=== PATIENT | female | born 1975 | race Caucasian/White ===

== ENCOUNTER 2019-12-16 18:20 | Emergency (ER) | payer OTHER ==
[2019-12-16 18:28] VITALS: RESP 18
[2019-12-16] MEDS ORDERED: KETOROLAC 30 MG/ML 1 ML VIAL IVP STA (18:56)
[2019-12-16] MEDS ORDERED: ONDANSETRON 4 MG/2 ML VIAL IVP STA (18:56)
[2019-12-16] MEDS ORDERED: SODIUM CHLORIDE 0.9% 1,000 ML IV STA (18:56)
[2019-12-16] MEDS ORDERED: PANTOPRAZOLE 40 MG/10 ML VIAL IVP STA (18:56)
[2019-12-16 19:35] LABS: Basophils # (A) 0.1 k/uL (0-0.2); Basophils % (A) 1 %; Eosinophils # (A) 0.4 k/uL (0-0.7); Eosinophils % (A) 4 %; HCT 34.9 % (34.0-46.0); HGB 11.4 gm/dL (11.4-16.0); Lymphocytes # (A) 2.7 k/uL (1.0-4.8); Lymphocytes % (A) 31 %; MCH 29.1 pg (25.0-35.0); MCHC 32.6 g/dL (31.0-37.0); MCV 89.3 fL (80.0-100.0); Mean Platelet Volume 7.5; Monocytes # (A) 0.4 k/uL (0-1.0); Monocytes % (A) 4 %; Neutrophils # (A) 4.9 k/uL (1.3-7.7); Neutrophils % (A) 58 %; Platelet Count 239 k/uL (150-450); RBC 3.91 m/uL (3.80-5.40); RDW 14.6 % (11.5-15.5); WBC 8.5 k/uL (3.8-10.6)
--- NOTE | 2019-12-16 19:46 | ED ---
Extremity Problem HPI - General Chief complaint: Extremity Problem,Nontraumatic Stated complaint: Arm/hand numbness Time Seen by Provider: 12/16/19 18:31 Source: patient, RN notes reviewed, old records reviewed Mode of arrival: ambulatory Limitations: no limitations - History of Present Illness Initial comments: Patient is a 44-year-old female who presents emergency Department today for concern for upper abdominal pain. She reports she has history of chronic pancreatitis. Patient reports that she is also here for upper extremity pain bilaterally. Patient reports that she gets numbness and tingling that will wake up and only of both hands and wrists. - Related Data Previous Rx's Medication Instructions Recorded Famotidine [Pepcid] 20 mg PO HS #20 tablet 12/16/19 Ibuprofen [Motrin] 600 mg PO Q8HR PRN #20 tab 12/16/19 Nitrofurantoin Monohyd/M-Cryst 100 mg PO Q12HR #14 cap 12/16/19 [Macrobid] Allergies Allergy/AdvReac Type Severity Reaction Status Date / Time No Known Allergies Allergy Verified 12/16/19 18:29 Review of Systems ROS Statement: Those systems with pertinent positive or pertinent negative responses have been documented in the HPI. ROS Other: All systems not noted in ROS Statement are negative. Past Medical History Past Medical History: Diabetes Mellitus Additional Past Medical History / Comment(s): panc. History of Any Multi-Drug Resistant Organisms: None Reported Additional Past Surgical History / Comment(s): cyst removed from panc. Past Psychological History: Anxiety, Bipolar, Depression, Schizophrenia Smoking Status: Current every day smoker Past Alcohol Use History: None Reported Past Drug Use History: Heroin General Exam - General Exam Comments Initial Comments: 44-year-old female. Limitations: no limitations General appearance: alert, in no apparent distress Head exam: Present: atraumatic, normocephalic, normal inspection Eye exam: Present: normal appearance, PERRL, EOMI. Absent: scleral icterus, conjunctival injection, periorbital swelling ENT exam: Present: normal exam, mucous membranes moist Neck exam: Present: normal inspection. Absent: tenderness, meningismus, lymphadenopathy Respiratory exam: Present: normal lung sounds bilaterally. Absent: respiratory distress, wheezes, rales, rhonchi, stridor Cardiovascular Exam: Present: regular rate, normal rhythm, normal heart sounds. Absent: systolic murmur, diastolic murmur, rubs, gallop, clicks GI/Abdominal exam: Present: soft, tenderness (Epigastric tenderness), normal bowel sounds. Absent: distended, guarding, rebound, rigid Extremities exam: Present: normal inspection, full ROM, normal capillary refill. Absent: tenderness, pedal edema, joint swelling, calf tenderness Back exam: Present: normal inspection Neurological exam: Present: alert, oriented X3, CN II-XII intact Psychiatric exam: Present: normal affect, normal mood Skin exam: Present: warm, dry, intact, normal color. Absent: rash Course Vital Signs 12/16/19 12/16/19 12/16/19 18:25 19:05 20:48 Temperature 99.3 F 98.4 F Pulse Rate 102 H 105 H 88 Respiratory 18 18 18 Rate Blood Pressure 114/79 101/73 104/70 O2 Sat by Pulse 99 100 100 Oximetry Medical Decision Making - Medical Decision Making Patient is a 44-year-old female who presents weren't sensitive chronic abdominal pain also complains of bilateral hand tingling numbness from time to time and a bili for months. Patient has normal capillary refill. Full sensation range of motion of hands. She does complain of some upper abdominal pain. Patient labs are reviewed and unremarkable. KUB shows evidence of rectosigmoid stool impaction. Patient informed of this. Discussed using stool softeners. Patient urinalysis also shows some evidence of UTI. Discussed treatment at this time with antibiotic. Discussed return parameters and following up with her PCP. Questions were answered return parameters were discussed. Patient was given a wrist cock-up splint Rx for her likely carpal tunnel related tingling in sensation hands. - Lab Data Result diagrams: 12/16/19 19:20 12/16/19 19:20 Lab Results 12/16/19 12/16/19 12/16/19 Range/Units 19: 19: 19: WBC 8.5 (3.8-10.6) k/uL RBC 3.91 (3.80-5.40) m/uL Hgb 11.4 (11.4-16.0) gm/dL Hct 34.9 (34.0-46.0) % MCV 89.3 (80.0-100.0) fL MCH 29.1 (25.0-35.0) pg MCHC 32.6 (31.0-37.0) g/dL RDW 14.6 (11.5-15.5) % Plt Count 239 (150-450) k/uL Neutrophils % 58 % Lymphocytes % 31 % Monocytes % 4 % Eosinophils % 4 % Basophils % 1 % Neutrophils # 4.9 (1.3-7.7) k/uL Lymphocytes # 2.7 (1.0-4.8) k/uL Monocytes # 0.4 (0-1.0) k/uL Eosinophils # 0.4 (0-0.7) k/uL Basophils # 0.1 (0-0.2) k/uL Sodium 135 L (137-145) mmol/L Potassium 3.8 (3.5-5.1) mmol/L Chloride 94 L (98-107) mmol/L Carbon Dioxide 31 H (22-30) mmol/L Anion Gap 10 mmol/L BUN 10 (7-17) mg/dL Creatinine 0.70 (0.52-1.04) mg/dL Est GFR (CKD-EPI)AfAm >90 (>60 ml/min/1.73 sqM) Est GFR (CKD-EPI)NonAf >90 (>60 ml/min/1.73 sqM) Glucose 154 H (74-99) mg/dL Plasma Lactic Acid Slava 1.2 (0.7-2.0) mmol/L Calcium 9.1 (8.4-10.2) mg/dL Total Bilirubin 0.3 (0.2-1.3) mg/dL AST 22 (14-36) U/L ALT 15 (4-34) U/L Alkaline Phosphatase 69 (38-126) U/L Total Protein 7.6 (6.3-8.2) g/dL Albumin 3.7 (3.5-5.0) g/dL Amylase 62 (30-110) U/L Lipase 17 L (23-300) U/L Urine Color Urine Appearance (Clear) Urine pH (5.0-8.0) Ur Specific [place] (1.001-1.035) Urine Protein (Negative) Urine Glucose (UA) (Negative) Urine Ketones (Negative) Urine Blood (Negative) Urine Nitrite (Negative) Urine Bilirubin (Negative) Urine Urobilinogen (<2.0) mg/dL Ur Leukocyte Esterase (Negative) Urine RBC (0-5) /hpf Urine WBC (0-5) /hpf Ur Squamous Epith Cells (0-4) /hpf Urine Bacteria (None) /hpf Urine Yeast (Budding) (None) /hpf 12/16/19 Range/Units 19:20 WBC (3.8-10.6) k/uL RBC (3.80-5.40) m/uL Hgb (11.4-16.0) gm/dL Hct (34.0-46.0) % MCV (80.0-100.0) fL MCH (25.0-35.0) pg MCHC (31.0-37.0) g/dL RDW (11.5-15.5) % Plt Count (150-450) k/uL Neutrophils % % Lymphocytes % % Monocytes % % Eosinophils % % Basophils % % Neutrophils # (1.3-7.7) k/uL Lymphocytes # (1.0-4.8) k/uL Monocytes # (0-1.0) k/uL Eosinophils # (0-0.7) k/uL Basophils # (0-0.2) k/uL Sodium (137-145) mmol/L Potassium (3.5-5.1) mmol/L Chloride (98-107) mmol/L Carbon Dioxide (22-30) mmol/L Anion Gap mmol/L BUN (7-17) mg/dL Creatinine (0.52-1.04) mg/dL Est GFR (CKD-EPI)AfAm (>60 ml/min/1.73 sqM) Est GFR (CKD-EPI)NonAf (>60 ml/min/1.73 sqM) Glucose (74-99) mg/dL Plasma Lactic Acid Slava (0.7-2.0) mmol/L Calcium (8.4-10.2) mg/dL Total Bilirubin (0.2-1.3) mg/dL AST (14-36) U/L ALT (4-34) U/L Alkaline Phosphatase (38-126) U/L Total Protein (6.3-8.2) g/dL Albumin (3.5-5.0) g/dL Amylase (30-110) U/L Lipase (23-300) U/L Urine Color Yellow Urine Appearance Turbid H (Clear) Urine pH 8.5 H (5.0-8.0) Ur Specific [place] 1.017 (1.001-1.035) Urine Protein Trace H (Negative) Urine Glucose (UA) Negative (Negative) Urine Ketones Negative (Negative) Urine Blood Negative (Negative) Urine Nitrite Negative (Negative) Urine Bilirubin Negative (Negative) Urine Urobilinogen 3.0 (<2.0) mg/dL Ur Leukocyte Esterase Trace H (Negative) Urine RBC <1 (0-5) /hpf Urine WBC 14 H (0-5) /hpf Ur Squamous Epith Cells 1 (0-4) /hpf Urine Bacteria Rare H (None) /hpf Urine Yeast (Budding) Moderate H (None) /hpf - Radiology Data Radiology results: report reviewed Rectosigmoid stool infection pattern. Overall nonobstructive bowel gas pattern. Disposition Clinical Impression: Numbness and tingling of hand, Abdominal pain, UTI (urinary tract infection) Disposition: HOME SELF-CARE Condition: Good Instructions (If sedation given, give patient instructions): Paresthesia (ED), Abdominal Pain (ED) Additional Instructions: Patient advised to rest, encourage fluid intake with water. Decrease her salt intake. Continue stool softner. Patient should follow-up with your PCP. Return to the emergency department if any alarming signs or symptoms occur. Prescriptions: Nitrofurantoin Monohyd/M-Cryst [Macrobid] 100 mg PO Q12HR #14 cap Ibuprofen [Motrin] 600 mg PO Q8HR PRN #20 tab PRN Reason: Pain Famotidine [Pepcid] 20 mg PO HS #20 tablet Is patient prescribed a controlled substance at d/c from ED?: No Referrals: Dionna Fernandez MD [Primary Care Provider] - 1-2 days Time of Disposition: 20:33
[2019-12-16] MEDS ORDERED: MORPHINE SULFATE 2 MG/ML SYRINGE IVP STA (19:51)
[2019-12-16] MEDS: MORPHINE SULFATE 4 MG/ML SYRINGE IV STA ×2 (19:52)
[2019-12-16 19:58] LABS: ALT 15 U/L (4-34); AST 22 U/L (14-36); African American GFR (CKD) >90 (>60 ml/min/1.73 sqM); Albumin 3.7 g/dL (3.5-5.0); Alkaline Phosphatase 69 U/L (38-126); Amylase 62 U/L (30-110); Anion Gap 10 mmol/L; Blood Urea Nitrogen 10 mg/dL (7-17); Calcium 9.1 mg/dL (8.4-10.2); Carbon Dioxide 31 mmol/L (22-30); Chloride 94 mmol/L (98-107); Glucose 154 mg/dL (74-99); Non-African American GFR(CKD) >90 (>60 ml/min/1.73 sqM); Potassium 3.8 mmol/L (3.5-5.1); Sodium 135 mmol/L (137-145); Total Bilirubin 0.3 mg/dL (0.2-1.3); Total Protein 7.6 g/dL (6.3-8.2)
[2019-12-16 20:00] LABS: Appearance,Urine Turbid (Clear); Bacteria,Urine Rare /hpf; Bilirubin,Urine Negative (Negative); Blood,Urine Negative (Negative); Budding Yeast,Urine Moderate /hpf; Color,Urine Yellow; Glucose,Urine (UA) Negative (Negative); Ketones,Urine Negative (Negative); Leukocyte Esterase,Urine Trace (Negative); Nitrite,Urine Negative (Negative); PH, Urine 8.5 (5.0-8.0); Protein,Urine Trace (Negative); RBC,Urine <1 /hpf (0-5); Specific Gravity,Urine 1.017 (1.001-1.035); Squamous Epithelial Cell,Urine 1 /hpf (0-4); WBC,Urine 14 /hpf (0-5)
--- NOTE | 2019-12-16 20:23 | XR ---
EXAMINATION TYPE: XR KUB DATE OF EXAM: 12/16/2019 7:47 PM CLINICAL HISTORY: TECHNIQUE: Single supine KUB image of the abdomen is obtained. COMPARISON: 04/18/2013 FINDINGS: The visualized lung bases and pleural spaces are negative. There is a marked abundance of s tool volume throughout the left lower quadrant and rectum, having the appearance of rectosigmoid stoo l impaction. The small bowel does not appear dilated. There is no pneumatosis or pneumoperitoneum. Hepatomegaly is redemonstrated. No acute skeletal findings. IMPRESSION: Rectosigmoid stool impaction pattern. Overall nonobstructive bowel gas pattern.
[2019-12-16 20:50] VITALS: BP 104/70; PULSE 88; TEMP 98.4
== END 2019-12-16 20:50 | disposition home or self-care (01) ==
LOC: EC 18:20
DX: N39.0 Urinary tract infection, site not specified (principal); R20.0 Anesthesia of skin; R20.2 Paresthesia of skin; K56.41 Fecal impaction; G89.29 Other chronic pain; R10.10 Upper abdominal pain, unspecified; E11.9 Type 2 diabetes mellitus without complications; K86.1 Other chronic pancreatitis; F17.200 Nicotine dependence, unspecified, uncomplicated; Z98.890 Other specified postprocedural states
CPT/HCPCS: 36415; 80053; 82150; 83605; 83690; 85025; 81001; 87086; 74018; 99284; 96374; 96375 ×3; 96361; J2270; J2405; J1885; C9113

== ENCOUNTER 2020-01-05 13:26 | Emergency (ER) | payer OTHER ==
[2020-01-05] MEDS: HYDROcodone/APAP 5-325MG 1 EACH TAB PO STA ×2 (13:45→14:25)
--- NOTE | 2020-01-05 13:53 | ED ---
Extremity Problem HPI - General Chief complaint: Extremity Problem,Nontraumatic Stated complaint: swelling to feet/ankles, pain in hands Time Seen by Provider: 01/05/20 13:34 Source: patient Mode of arrival: ambulatory Limitations: no limitations - History of Present Illness Initial comments: 44-year-old female who has history of lower extremity edema and history of taking Lasix for this presents emergency department today for chief complaint of bilateral lower external swelling. Patient states she has had bilateral lower extremities. Past day. She denies a sodium increased. Patient states she's been off her Lasix for a week. Patient denies any heart failure denies any chest pain shortness of breath denies any history of DVT or pulmonary embolism. She denies any unilateral leg swelling she states is equal bilaterally she denies any calf pain. Patient denies a chest pain or shortness of breath denies any dyspnea on exertion nor orthopnea. Patient denies any fever or upper respiratory symptoms. Patient also has secondary complaint of pain and digits 345 of the right hand. She states is sharp shooting pain. Patient states she has not pain in the wrist and has occasional pain in the neck. Patient denies any recent falls or direct trauma to the head or neck. Patient states this is been ongoing for quite some time now. Patient denies any loss of sensation or weakness. Patient denies any headache dizziness nausea vomiting speech changes visual changes or any other complaints associated. Immediately system negative and upon arrival patient appears well she is in rheumatoid there is no signs of acute distress. - Related Data Previous Rx's Medication Instructions Recorded Famotidine [Pepcid] 20 mg PO HS #20 tablet 12/16/19 Ibuprofen [Motrin] 600 mg PO Q8HR PRN #20 tab 12/16/19 Nitrofurantoin Monohyd/M-Cryst 100 mg PO Q12HR #14 cap 12/16/19 [Macrobid] Cephalexin [Keflex] 500 mg PO Q8HR 5 Days #15 cap 01/05/20 Allergies Allergy/AdvReac Type Severity Reaction Status Date / Time No Known Allergies Allergy Verified 01/05/20 13:33 Review of Systems ROS Statement: Those systems with pertinent positive or pertinent negative responses have been documented in the HPI. ROS Other: All systems not noted in ROS Statement are negative. Past Medical History Past Medical History: Diabetes Mellitus Additional Past Medical History / Comment(s): panc. History of Any Multi-Drug Resistant Organisms: None Reported Additional Past Surgical History / Comment(s): cyst removed from pancreas Past Psychological History: Anxiety, Bipolar, Depression, Schizophrenia Smoking Status: Current every day smoker Past Alcohol Use History: None Reported Past Drug Use History: Heroin General Exam - General Exam Comments Initial Comments: General: The patient is awake and alert, in no distress Eye: +3 mm pupils are equal, round and reactive to light, extra-ocular mov ements are intact. No nystagmus. There is normal conjunctiva bilaterally. No signs of icterus. Ears, nose, mouth and throat: There are moist mucous membranes and no oral lesions. Neck: The neck is supple, there is no tenderness or JVD. Cardiovascular: There is a regular rate and rhythm. No murmur, rub or gallop is appreciated. Respiratory: Lungs are clear to auscultation, respirations are non-labored, breath sounds are equal. No wheezes, stridor, rales, or rhonchi. Gastrointestinal: Soft, non-distended, non-tender abdomen without masses or organomegaly noted. There is no rebound or guarding present. Musculoskeletal: Normal ROM, no tenderness. Strength 5/5. Sensation intact. Pulses equal bilaterally 2+. Neurological: A&O x 3. CN II-XII intact grossly, There are no obvious motor or sensory deficits. Coordination appears grossly intact. Speech is normal. Skin: Skin is warm and dry and no rashes or lesions are noted. Nonpitting swelling of the lower extremities equal and comparison bilaterally. No calf pain, (- ) Homans b/l. Psychiatric: Cooperative, appropriate mood & affect, normal judgment. Limitations: no limitations Course Vital Signs 01/05/20 01/05/20 01/05/20 13:29 16:00 16:10 Temperature 98.4 F Pulse Rate 96 95 96 Respiratory 18 18 10 L Rate Blood Pressure 98/62 99/71 O2 Sat by Pulse 100 Oximetry 01/05/20 01/05/20 01/05/20 16:12 16:20 16:30 Temperature Pulse Rate 86 100 Respiratory 18 12 Rate Blood Pressure 97/68 97/68 97/68 O2 Sat by Pulse 98 Oximetry 01/05/20 17:32 Temperature 98.5 F Pulse Rate 87 Respiratory 18 Rate Blood Pressure 97/64 O2 Sat by Pulse 98 Oximetry Medical Decision Making - Medical Decision Making 44-year-old female presented for bilateral lower extremity swelling. Heart sounds WNL. Lungs clear. BNP within normal limits. There is no vascular congestion on chest x-ray. Patient has no history concerning for deep venous thrombosis. Patient states swelling appears more cohesive with a dependent edema. Patient's EKG no acute findings this was reviewed by my attending provider. I discussed the sharp pain of the hands the patient if at this time feel this is most likely a neuropathy. This is been ongoing for quite some time. Patient was instructed to restrict salt intake, use compression stocking, elevate feet and f/u with PCP. Patient also was found to have UTI, initiated on Keflex. Patient is agreeable to this care plan and discharge. Return parameters which include any shortness of breath or difficulty lying flat were discussed at length the patient verbalized understanding patient is discharged appearing well Dr. Lynn who was mentally provider and the case reviewed patient's laboratory studies imaging EKG and is agreeable to care plan discharge at this time. - Lab Data Result diagrams: 01/05/20 15:05 01/05/20 15:05 Lab Results 01/05/20 01/05/20 01/05/20 Range/Units 15:05 15:05 15:05 WBC 5.0 (3.8-10.6) k/uL RBC 3.43 L (3.80-5.40) m/uL Hgb 10.1 L (11.4-16.0) gm/dL Hct 30.5 L (34.0-46.0) % MCV 88.8 (80.0-100.0) fL MCH 29.6 (25.0-35.0) pg MCHC 33.3 (31.0-37.0) g/dL RDW 14.0 (11.5-15.5) % Plt Count 160 (150-450) k/uL Neutrophils % 34 % Lymphocytes % 49 % Monocytes % 5 % Eosinophils % 8 % Basophils % 0 % Neutrophils # 1.7 (1.3-7.7) k/uL Lymphocytes # 2.5 (1.0-4.8) k/uL Monocytes # 0.3 (0-1.0) k/uL Eosinophils # 0.4 (0-0.7) k/uL Basophils # 0.0 (0-0.2) k/uL Sodium 139 (137-145) mmol/L Potassium 4.2 (3.5-5.1) mmol/L Chloride 104 (98-107) mmol/L Carbon Dioxide 29 (22-30) mmol/L Anion Gap 6 mmol/L BUN 12 (7-17) mg/dL Creatinine 0.75 (0.52-1.04) mg/dL Est GFR (CKD-EPI)AfAm >90 (>60 ml/min/1.73 sqM) Est GFR (CKD-EPI)NonAf >90 (>60 ml/min/1.73 sqM) Glucose 82 (74-99) mg/dL Calcium 8.9 (8.4-10.2) mg/dL Total Bilirubin 0.3 (0.2-1.3) mg/dL AST 26 (14-36) U/L ALT 11 (4-34) U/L Alkaline Phosphatase 40 (38-126) U/L Troponin I (0.000-0.034) ng/mL NT-Pro-B Natriuret Pep 124 pg/mL Total Protein 6.6 (6.3-8.2) g/dL Albumin 3.3 L (3.5-5.0) g/dL Urine Color Urine Appearance (Clear) Urine pH (5.0-8.0) Ur Specific [place] (1.001-1.035) Urine Protein (Negative) Urine Glucose (UA) (Negative) Urine Ketones (Negative) Urine Blood (Negative) Urine Nitrite (Negative) Urine Bilirubin (Negative) Urine Urobilinogen (<2.0) mg/dL Ur Leukocyte Esterase (Negative) Urine RBC (0-5) /hpf Urine WBC (0-5) /hpf Urine WBC Clumps (None) /hpf Ur Squamous Epith Cells (0-4) /hpf Urine Bacteria (None) /hpf 01/05/20 01/05/20 Range/Units 15:05 16:27 WBC (3.8-10.6) k/uL RBC (3.80-5.40) m/uL Hgb (11.4-16.0) gm/dL Hct (34.0-46.0) % MCV (80.0-100.0) fL MCH (25.0-35.0) pg MCHC (31.0-37.0) g/dL RDW (11.5-15.5) % Plt Count (150-450) k/uL Neutrophils % % Lymphocytes % % Monocytes % % Eosinophils % % Basophils % % Neutrophils # (1.3-7.7) k/uL Lymphocytes # (1.0-4.8) k/uL Monocytes # (0-1.0) k/uL Eosinophils # (0-0.7) k/uL Basophils # (0-0.2) k/uL Sodium (137-145) mmol/L Potassium (3.5-5.1) mmol/L Chloride (98-107) mmol/L Carbon Dioxide (22-30) mmol/L Anion Gap mmol/L BUN (7-17) mg/dL Creatinine (0.52-1.04) mg/dL Est GFR (CKD-EPI)AfAm (>60 ml/min/1.73 sqM) Est GFR (CKD-EPI)NonAf (>60 ml/min/1.73 sqM) Glucose (74-99) mg/dL Calcium (8.4-10.2) mg/dL Total Bilirubin (0.2-1.3) mg/dL AST (14-36) U/L ALT (4-34) U/L Alkaline Phosphatase (38-126) U/L Troponin I <0.012 (0.000-0.034) ng/mL NT-Pro-B Natriuret Pep pg/mL Total Protein (6.3-8.2) g/dL Albumin (3.5-5.0) g/dL Urine Color Yellow Urine Appearance Turbid H (Clear) Urine pH 6.0 (5.0-8.0) Ur Specific [place] 1.028 (1.001-1.035) Urine Protein 1+ H (Negative) Urine Glucose (UA) Negative (Negative) Urine Ketones Negative (Negative) Urine Blood Trace H (Negative) Urine Nitrite Negative (Negative) Urine Bilirubin Negative (Negative) Urine Urobilinogen 2.0 (<2.0) mg/dL Ur Leukocyte Esterase Large H (Negative) Urine RBC 74 H (0-5) /hpf Urine WBC >182 H (0-5) /hpf Urine WBC Clumps Many H (None) /hpf Ur Squamous Epith Cells 73 H (0-4) /hpf Urine Bacteria Rare H (None) /hpf - EKG Data EKG Comments: Ventricular rate 97 bpm, MN interval 138 ms, QR worship 78 ms, QT/QTC 352/447 ms. This is her most sinus no ST elevation or depression Disposition Clinical Impression: Chronic hand pain, Bilateral lower extremity edema, UTI (urinary tract infection) Disposition: HOME SELF-CARE Condition: Good Instructions (If sedation given, give patient instructions): Urinary Tract Infection in Women (ED), Leg Edema (ED) Additional Instructions: Please use medication as discussed. Please follow-up with family doctor in the next 2 days. Please return to emergency room if the symptoms increase or worsen or for any other concerns. Prescriptions: Cephalexin [Keflex] 500 mg PO Q8HR 5 Days #15 cap Is patient prescribed a controlled substance at d/c from ED?: No Referrals: Dionna Fernandez MD [Primary Care Provider] - 1-2 days Time of Disposition: 17:24
--- NOTE | 2020-01-05 14:37 | XR ---
EXAMINATION TYPE: XR chest 2V DATE OF EXAM: 01/05/2020 COMPARISON: 04/18/2013 HISTORY: 44 year-old female bilateral leg swelling TECHNIQUE: AP and lateral views FINDINGS: The heart is normal size. Aorta and pulmonary vasculature within normal limits. Some focal density pe ripheral right midlung not seen in 2013. No consolidation or pleural effusion otherwise seen. IMPRESSION: Focal density peripheral right midlung not seen in 2013. Small area of developing infiltrate difficul t to exclude. Correlate with patient's symptoms. Follow-up after treatment to ensure clearance and ex clude underlying pulmonary nodule.
[2020-01-05] MEDS ORDERED: SODIUM CHLORIDE 0.9% 500 ML 500 ML IV ONE (15:02)
[2020-01-05 15:26] LABS: ALT 11 U/L (4-34); AST 26 U/L (14-36); African American GFR (CKD) >90 (>60 ml/min/1.73 sqM); Albumin 3.3 g/dL (3.5-5.0); Alkaline Phosphatase 40 U/L (38-126); Anion Gap 6 mmol/L; Blood Urea Nitrogen 12 mg/dL (7-17); Calcium 8.9 mg/dL (8.4-10.2); Carbon Dioxide 29 mmol/L (22-30); Chloride 104 mmol/L (98-107); Glucose 82 mg/dL (74-99); Non-African American GFR(CKD) >90 (>60 ml/min/1.73 sqM); Potassium 4.2 mmol/L (3.5-5.1); Sodium 139 mmol/L (137-145); Total Bilirubin 0.3 mg/dL (0.2-1.3); Total Protein 6.6 g/dL (6.3-8.2)
[2020-01-05 15:33] LABS: Basophils % (A) 0 %; Eosinophils # (A) 0.4 k/uL (0-0.7); Eosinophils % (A) 8 %; HCT 30.5 % (34.0-46.0); HGB 10.1 gm/dL (11.4-16.0); Lymphocytes # (A) 2.5 k/uL (1.0-4.8); Lymphocytes % (A) 49 %; MCH 29.6 pg (25.0-35.0); MCHC 33.3 g/dL (31.0-37.0); MCV 88.8 fL (80.0-100.0); Monocytes # (A) 0.3 k/uL (0-1.0); Monocytes % (A) 5 %; Neutrophils # (A) 1.7 k/uL (1.3-7.7); Neutrophils % (A) 34 %; Platelet Count 160 k/uL (150-450); RBC 3.43 m/uL (3.80-5.40)
[2020-01-05 16:49] LABS: Appearance,Urine Turbid (Clear); Bacteria,Urine Rare /hpf; Bilirubin,Urine Negative (Negative); Blood,Urine Trace (Negative); Color,Urine Yellow; Glucose,Urine (UA) Negative (Negative); Ketones,Urine Negative (Negative); Leukocyte Esterase,Urine Large (Negative); Nitrite,Urine Negative (Negative); Protein,Urine 1+ (Negative); RBC,Urine 74 /hpf (0-5); Specific Gravity,Urine 1.028 (1.001-1.035); Squamous Epithelial Cell,Urine 73 /hpf (0-4); WBC,Urine >182 /hpf (0-5)
[2020-01-05] MEDS ORDERED: CEPHALEXIN 500 MG CAP PO STA (17:14)
[2020-01-05 17:38] VITALS: BP 97/64; PULSE 87; RESP 18; TEMP 98.5
== END 2020-01-05 17:32 | disposition home or self-care (01) ==
LOC: EC 13:26
DX: M79.641 Pain in right hand (principal); M79.642 Pain in left hand; G89.29 Other chronic pain; R60.0 Localized edema; N39.0 Urinary tract infection, site not specified; M79.644 Pain in right finger(s); M54.2 Cervicalgia; F17.200 Nicotine dependence, unspecified, uncomplicated
CPT/HCPCS: 36415; 71046; 80053; 81001; 83880; 84484; 85025; 87086; 93005; 96360; 99284

== ENCOUNTER 2020-01-18 17:15 | Emergency (ER) | payer OTHER ==
[2020-01-18] MEDS ORDERED: SODIUM CHLORIDE 0.9% 1,000 ML IV STA (17:28)
--- NOTE | 2020-01-18 17:35 | ED ---
General Adult HPI - General Chief complaint: Recheck/Abnormal Lab/Rx Stated complaint: swelling & pain Time Seen by Provider: 01/18/20 17:17 Source: patient, EMS, RN notes reviewed, old records reviewed Mode of arrival: EMS - History of Present Illness Initial comments: This is a 44-year-old female presents today for evaluation for swelling and minimal bilateral lower extremities. She's been having symptoms off and on for the past few weeks. She states she's been taking her Lasix faithfully. Patient also complains of pain in her hands and numbness and tingling sensation. This is been going on for weeks as well. Patient states that she called her PCP and with the persistent swelling the PCP told her to come to the emergency department. She denies any chest pain or shortness of breath. She denies any other significant complaints. - Related Data Home Medications Medication Instructions Recorded Confirmed Atorvastatin Calcium [Lipitor] 10 mg PO DAILY 01/18/20 01/18/20 Docusate [Colace] 100 mg PO DAILY PRN 01/18/20 01/18/20 Famotidine [Pepcid] 20 mg PO BID 01/18/20 01/18/20 Furosemide [Lasix] 20 mg PO DAILY 01/18/20 01/18/20 Insulin Glargine,Hum.rec.anlog 23 unit SQ HS 01/18/20 01/18/20 [Basaglar Kwikpen U-100] Insulin Lispro [Admelog] 8 units SQ AC-TID 01/18/20 01/18/20 Lisinopril [Zestril] 5 mg PO DAILY 01/18/20 01/18/20 Potassium Chloride ER [K-Dur 20] 20 meq PO DAILY 01/18/20 01/18/20 QUEtiapine FUMARATE [SEROquel] 300 mg PO HS 01/18/20 01/18/20 Previous Rx's Medication Instructions Recorded Ibuprofen [Motrin] 600 mg PO Q8HR PRN #20 tab 12/16/19 Allergies Allergy/AdvReac Type Severity Reaction Status Date / Time Penicillins Allergy Unknown Verified 01/18/20 19:15 Childhood Review of Systems ROS Statement: Those systems with pertinent positive or pertinent negative responses have been documented in the HPI. ROS Other: All systems not noted in ROS Statement are negative. Past Medical History Past Medical History: Diabetes Mellitus Additional Past Medical History / Comment(s): panc. 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 Alert and oriented. No significant distress. General appearance: alert, in no apparent distress Head exam: Present: atraumatic, normocephalic, normal inspection Eye exam: Present: normal appearance, PERRL, EOMI. Absent: scleral icterus, conjunctival injection, periorbital swelling ENT exam: Present: normal exam, mucous membranes moist Neck exam: Present: normal inspection. Absent: tenderness, meningismus, lymphadenopathy Respiratory exam: Present: normal lung sounds bilaterally. Absent: respiratory distress, wheezes, rales, rhonchi, stridor Cardiovascular Exam: Present: regular rate, normal rhythm, normal heart sounds. Absent: systolic murmur, diastolic murmur, rubs, gallop, clicks GI/Abdominal exam: Present: soft, normal bowel sounds. Absent: distended, tenderness, guarding, rebound, rigid Extremities exam: Present: normal inspection, full ROM, normal capillary refill, pedal edema (He has 2+ bilateral pedal edema. Normal pulses distally 2+ dorsalis pedis pulse. ), other (Patient complains of chronic hand pain. She has pulses distally. Full range of motion sensation of hands. She reports the pain is mainly over her right third and fourth digits.). Absent: tenderness, joint swelling, calf tenderness Back exam: Present: normal inspection Neurological exam: Present: alert, oriented X3, CN II-XII intact Psychiatric exam: Present: normal affect, normal mood Skin exam: Present: warm, dry, intact, normal color. Absent: rash Course Vital Signs 01/18/20 17:18 Temperature 98.3 F Pulse Rate 103 H Respiratory 18 Rate Blood Pressure 112/74 O2 Sat by Pulse 100 Oximetry Medical Decision Making - Medical Decision Making 44-year-old female presents for chronic hand pain and chronic A swelling. She's been to the emergency department 3 times for similar complaints. At this time Patient has normal sensation and pulses distally. She does have 2+ bilateral pedal edema. She has only been wearing her compression stockings from time to time. Discussed that this should be worn daily. Patient's BMP is unremarkable. Chest x-ray shows no signs of heart failure. Ultrasound was completed and negative for DVTs bilaterally. Patient advised to follow-up with primary care doctor and orthopedic for her chronic hand pain and lower extremity swelling. Patient understands treatment plan will comply. - Lab Data Result diagrams: 01/18/20 17:30 01/18/20 17:30 Lab Results 01/18/20 01/18/20 01/18/20 Range/Units 17:30 17:30 17:30 WBC 6.4 (3.8-10.6) k/uL RBC 3.96 (3.80-5.40) m/uL Hgb 11.4 (11.4-16.0) gm/dL Hct 34.7 (34.0-46.0) % MCV 87.6 (80.0-100.0) fL MCH 28.9 (25.0-35.0) pg MCHC 33.0 (31.0-37.0) g/dL RDW 14.5 (11.5-15.5) % Plt Count 184 (150-450) k/uL Neutrophils % 45 % Lymphocytes % 42 % Monocytes % 5 % Eosinophils % 6 % Basophils % 0 % Neutrophils # 2.9 (1.3-7.7) k/uL Lymphocytes # 2.7 (1.0-4.8) k/uL Monocytes # 0.3 (0-1.0) k/uL Eosinophils # 0.4 (0-0.7) k/uL Basophils # 0.0 (0-0.2) k/uL PT 10.9 (9.0-12.0) sec INR 1.1 (<1.2) APTT 22.9 (22.0-30.0) sec Sodium 139 (137-145) mmol/L Potassium 3.6 (3.5-5.1) mmol/L Chloride 106 (98-107) mmol/L Carbon Dioxide 25 (22-30) mmol/L Anion Gap 8 mmol/L BUN 9 (7-17) mg/dL Creatinine 0.72 (0.52-1.04) mg/dL Est GFR (CKD-EPI)AfAm >90 (>60 ml/min/1.73 sqM) Est GFR (CKD-EPI)NonAf >90 (>60 ml/min/1.73 sqM) Glucose 70 L (74-99) mg/dL Calcium 8.8 (8.4-10.2) mg/dL Magnesium 1.6 (1.6-2.3) mg/dL Total Bilirubin 0.3 (0.2-1.3) mg/dL AST 32 (14-36) U/L ALT 15 (4-34) U/L Alkaline Phosphatase 44 (38-126) U/L Troponin I (0.000-0.034) ng/mL NT-Pro-B Natriuret Pep pg/mL Total Protein 7.2 (6.3-8.2) g/dL Albumin 3.7 (3.5-5.0) g/dL Urine Color Urine Appearance (Clear) Urine pH (5.0-8.0) Ur Specific Rothschild (1.001-1.035) Urine Protein (Negative) Urine Glucose (UA) (Negative) Urine Ketones (Negative) Urine Blood (Negative) Urine Nitrite (Negative) Urine Bilirubin (Negative) Urine Urobilinogen (<2.0) mg/dL Ur Leukocyte Esterase (Negative) Urine RBC (0-5) /hpf Urine WBC (0-5) /hpf Ur Squamous Epith Cells (0-4) /hpf Urine Bacteria (None) /hpf Urine Mucus (None) /hpf 01/18/20 01/18/20 01/18/20 Range/Units 17:30 17:30 18:50 WBC (3.8-10.6) k/uL RBC (3.80-5.40) m/uL Hgb (11.4-16.0) gm/dL Hct (34.0-46.0) % MCV (80.0-100.0) fL MCH (25.0-35.0) pg MCHC (31.0-37.0) g/dL RDW (11.5-15.5) % Plt Count (150-450) k/uL Neutrophils % % Lymphocytes % % Monocytes % % Eosinophils % % Basophils % % Neutrophils # (1.3-7.7) k/uL Lymphocytes # (1.0-4.8) k/uL Monocytes # (0-1.0) k/uL Eosinophils # (0-0.7) k/uL Basophils # (0-0.2) k/uL PT (9.0-12.0) sec INR (<1.2) APTT (22.0-30.0) sec Sodium (137-145) mmol/L Potassium (3.5-5.1) mmol/L Chloride (98-107) mmol/L Carbon Dioxide (22-30) mmol/L Anion Gap mmol/L BUN (7-17) mg/dL Creatinine (0.52-1.04) mg/dL Est GFR (CKD-EPI)AfAm (>60 ml/min/1.73 sqM) Est GFR (CKD-EPI)NonAf (>60 ml/min/1.73 sqM) Glucose (74-99) mg/dL Calcium (8.4-10.2) mg/dL Magnesium (1.6-2.3) mg/dL Total Bilirubin (0.2-1.3) mg/dL AST (14-36) U/L ALT (4-34) U/L Alkaline Phosphatase (38-126) U/L Troponin I <0.012 (0.000-0.034) ng/mL NT-Pro-B Natriuret Pep 112 pg/mL Total Protein (6.3-8.2) g/dL Albumin (3.5-5.0) g/dL Urine Color Yellow Urine Appearance Clear (Clear) Urine pH 5.5 (5.0-8.0) Ur Specific R[place] 1.012 (1.001-1.035) Urine Protein Negative (Negative) Urine Glucose (UA) Negative (Negative) Urine Ketones Negative (Negative) Urine Blood Negative (Negative) Urine Nitrite Negative (Negative) Urine Bilirubin Negative (Negative) Urine Urobilinogen <2.0 (<2.0) mg/dL Ur Leukocyte Esterase Small H (Negative) Urine RBC 1 (0-5) /hpf Urine WBC 4 (0-5) /hpf Ur Squamous Epith Cells 6 H (0-4) /hpf Urine Bacteria Rare H (None) /hpf Urine Mucus Rare H (None) /hpf 01/18/20 17:56 EKG performed at 1741 shows normal sinus rhythm normal EKG. Ventricular rate of 80 bpm. Interval is 1:30 milliseconds. QS duration is 80 ms. QT QTc is 382/462 ms. - Radiology Data Radiology results: report reviewed Chest x-ray shows no acute critical me process. No significant change from prior. US of biLateral Lower Extremities Are Negative for DVT. Disposition Clinical Impression: Bilateral lower extremity edema, Chronic hand pain Disposition: HOME SELF-CARE Condition: Good Instructions (If sedation given, give patient instructions): Leg Edema (ED) Additional Instructions: Patient should follow-up with orthopedic. should use compression stockings. Keep the feet up and elevated above the heart. Follow-up with your primary care physician, call ortho prior to follow up for appt. Return to the ED if any alarming signs or symptoms occur. Is patient prescribed a controlled substance at d/c from ED?: No Referrals: Dionna Fernandez MD [Primary Care Provider] - 1-2 days Time of Disposition: 20:00
[2020-01-18 17:38] VITALS: RESP 18
[2020-01-18 17:46] LABS: Basophils % (A) 0 %; Eosinophils # (A) 0.4 k/uL (0-0.7); Eosinophils % (A) 6 %; HCT 34.7 % (34.0-46.0); HGB 11.4 gm/dL (11.4-16.0); Lymphocytes # (A) 2.7 k/uL (1.0-4.8); Lymphocytes % (A) 42 %; MCH 28.9 pg (25.0-35.0); MCV 87.6 fL (80.0-100.0); Mean Platelet Volume 7.5; Monocytes # (A) 0.3 k/uL (0-1.0); Monocytes % (A) 5 %; Neutrophils # (A) 2.9 k/uL (1.3-7.7); Neutrophils % (A) 45 %; Platelet Count 184 k/uL (150-450); RBC 3.96 m/uL (3.80-5.40); RDW 14.5 % (11.5-15.5); WBC 6.4 k/uL (3.8-10.6)
[2020-01-18 17:55] LABS: ALT 15 U/L (4-34); AST 32 U/L (14-36); African American GFR (CKD) >90 (>60 ml/min/1.73 sqM); Albumin 3.7 g/dL (3.5-5.0); Alkaline Phosphatase 44 U/L (38-126); Anion Gap 8 mmol/L; Blood Urea Nitrogen 9 mg/dL (7-17); Calcium 8.8 mg/dL (8.4-10.2); Carbon Dioxide 25 mmol/L (22-30); Chloride 106 mmol/L (98-107); Glucose 70 mg/dL (74-99); Magnesium 1.6 mg/dL (1.6-2.3); Non-African American GFR(CKD) >90 (>60 ml/min/1.73 sqM); Potassium 3.6 mmol/L (3.5-5.1); Sodium 139 mmol/L (137-145); Total Bilirubin 0.3 mg/dL (0.2-1.3); Total Protein 7.2 g/dL (6.3-8.2)
[2020-01-18 18:02] LABS: INR 1.1 (<1.2); Partial Thromboplastin Time 22.9 sec (22.0-30.0); Prothrombin Time 10.9 sec (9.0-12.0)
[2020-01-18] MEDS ORDERED: KETOROLAC 30 MG/ML 1 ML VIAL IVP STA (18:12)
--- NOTE | 2020-01-18 18:21 | XR ---
EXAMINATION TYPE: XR chest 2V DATE OF EXAM: 01/18/2020 COMPARISON: Chest x-ray January 05, 2020 HISTORY: Chest pain. TECHNIQUE: Frontal and lateral views of the chest are obtained. FINDINGS: Overlying EKG leads are redemonstrated. There is no focal air space opacity, pleural effusi on, or pneumothorax seen. Chronic nodularity lateral right midlung redemonstrated. Nonemergent follow -up advised. The cardiac silhouette size is within normal limits. The osseous structures are intact . IMPRESSION: No acute cardiopulmonary process. No significant change from prior.
--- NOTE | 2020-01-18 19:11 | US ---
EXAMINATION TYPE: US venous doppler duplex LE DATE OF EXAM: 01/18/2020 6:52 PM COMPARISON: US 2013 CLINICAL HISTORY: pain, swelling 3rd visit . Pain and swelling in bilateral legs x 2 weeks. No hx of DVT. Patient does not take blood thinners. SIDE PERFORMED: Bilateral TECHNIQUE: The lower extremity deep venous system is examined utilizing real time linear array sonog jason with graded compression, doppler sonography and color-flow sonography. VESSELS IMAGED: External Iliac Vein (EIV) Common Femoral Vein Deep Femoral Vein Greater Saphenous Vein * Femoral Vein Popliteal Vein Small Saphenous Vein * Proximal Calf Veins (* superficial vessels) Right Leg: No evidence of DVT in veins imaged at this time from prox calf veins to EIV. Left Leg: No evidence of DVT in veins imaged at this time from prox calf veins to EIV. Satisfactory compressibility phasicity and color flow bilaterally. IMPRESSION: No ultrasound evidence for acute DVT in either lower extremity.
[2020-01-18 19:12] LABS: Appearance,Urine Clear (Clear); Bacteria,Urine Rare /hpf; Bilirubin,Urine Negative (Negative); Blood,Urine Negative (Negative); Color,Urine Yellow; Glucose,Urine (UA) Negative (Negative); Ketones,Urine Negative (Negative); Leukocyte Esterase,Urine Small (Negative); Mucus,Urine Rare /hpf; Nitrite,Urine Negative (Negative); PH, Urine 5.5 (5.0-8.0); Protein,Urine Negative (Negative); RBC,Urine 1 /hpf (0-5); Specific Gravity,Urine 1.012 (1.001-1.035); Squamous Epithelial Cell,Urine 6 /hpf (0-4); Urobilinogen,Urine <2.0 mg/dL (<2.0); WBC,Urine 4 /hpf (0-5)
[2020-01-18 20:22] VITALS: BP 96/68; PULSE 95; TEMP 98
== END 2020-01-18 20:13 | disposition home or self-care (01) ==
LOC: EC 17:15
DX: M79.641 Pain in right hand (principal); M79.642 Pain in left hand; G89.29 Other chronic pain; R60.0 Localized edema; E11.9 Type 2 diabetes mellitus without complications; F31.9 Bipolar disorder, unspecified; F20.9 Schizophrenia, unspecified; F17.200 Nicotine dependence, unspecified, uncomplicated; Z88.0 Allergy status to penicillin; Z79.4 Long term (current) use of insulin; Z79.899 Other long term (current) drug therapy; Z53.20 Procedure and treatment not carried out because of patient's decision for unspecified reasons
CPT/HCPCS: 36415; 93005; 83880; 80053; 83735; 84484; 85025; 85610; 85730; 81001; 71046; 93970; 99285; 96374; J1885